=== PATIENT | female | born 1975 | race Caucasian/White ===

== ENCOUNTER 2025-08-08 19:15 | Emergency (ER) | payer MEDICAID, SELFPAY ==
[2025-08-08] VITALS (20 sets, daily range): BP systolic 99–135; BP diastolic 38–110; PULSE 56–69; RESP 8–25; TEMP 36.5; O2SAT 97–99
--- NOTE | 2025-08-08 19:15 | RT.EKG_ITS ---
APPROVED REPORT Exam: Resting ECG Reason for Exam: chest pain Patient Location: E HR:63 bpm ECG Measurements Heart Rate 63 AXIS MI 129 P 70 QRSd 99 QRS 83 QT 422 T 74 QTc 433 Conclusion Sinus rhythm, rate 63 No interval abnormalities No STEMI No priors available for comparison
--- NOTE | 2025-08-08 19:25 | DI.RAD_ITS ---
Exam(s) XR CHEST 2V PA LATERAL EXAM: XR CHEST 2V PA LATERAL CLINICAL HISTORY: Chest pain TECHNIQUE: 2D digital imaging was performed of the chest. Two images were obtained. PA and lateral views were obtained. COMPARISON: No exams were available for comparison FINDINGS: MEDIASTINUM: Normal. HEART: Normal. PULMONARY VASCULATURE: Normal. LUNGS: Clear. PLEURAL SPACE: No pleural effusion or pneumothorax. BONE:Within normal limits for the patient's age. OTHER FINDINGS:Normal. IMPRESSION: 1. No acute pulmonary findings. 2. The preliminary [facility] report was reviewed. DATA REPOSITORY: RADIATION DOSE DELIVERED:
--- NOTE | 2025-08-08 19:27 | ED.GENADUL_ITS ---
Discharge Plan Disposition Patient Disposition: Home Condition: Stable Discharge Details Clinical Impression: Chest pain Primary Care Provider: None,None ED Provider: Kanika Pedersen Home Meds and New Rx's Prescriptions: No Action albuterol 90 mcg/actuation aerosol inhalation fluticasone propionate [Aller-Rehan] 50 mcg/actuation spray,suspension 1 spray intranasal ONCE Rx Instructions: administer into each nostril montelukast [Singulair] 10 mg tablet 10 mg PO DAILY omeprazole 20 mg capsule,delayed release(DR/EC) 20 mg PO DAILY ipratropium-albuterol 0.5 mg-3 mg(2.5 mg base)/3 mL solution for nebulization 3 ml inhalation Q4H PRN levalbuterol HCl 1.25 mg/3 mL solution for nebulization 1.25 mg inhalation Q6H Discharge Instructions Instructions: Chest Pain, Adult ED Additional Instructions: You were seen in the emergency department today for evaluation of chest pain. In our department had a full physical examination performed, had an EKG that did not show sign of heart attack, and had laboratory studies that were reassuring, including 2 negative cardiac enzymes. Your chest x-ray does not show any sign of pneumonia or other abnormality to explain your symptoms. Given your very strenuous day, I am suspicious for a musculoskeletal cause of your chest pain, which could be the muscles, cartilage, or other structures of the chest wall. Please use therapeutic dosing of Tylenol (acetaminophen) & Advil (ibuprofen) in an alternating fashion as follows: Take 1000mg of Tylenol every 6 hours without missing doses- that is 4 times per day. Longterm in between the Tylenol doses, take 600mg of Advil also on a 6 hour schedule, that is also 4 times per day. With this strategy, you will be taking something for fever/pain as often as every 3 hours. The daily maximum dosing of Tylenol is 4000mg, and the daily maximum dosing of Advil is 2400mg. Please note that some common cold medications & prescription pain medications may contain acetaminophen and you need to read OTC drug labels and factor that in to maximum daily doses. I recommend that you obtain lidocaine patches [id number] and place them over the area of maximal pain. Please follow-up with your primary care provider in the next few days to discuss this visit and any symptoms that change, worsen, or persist. Thank you for allowing us to be part of your care. HPI General Mode of arrival: wheelchair . Date/Time Provider Initiated Documentation: 08/08/25 19:17 . Limitations to Documentation: no limitations . Information obtained by: patient and old records reviewed . HPI Narrative: This is a 50-year-old female patient with a past medical history significant for pulmonary nodules following at [facility] for cancer workup, history of pulmonary emphysema, presenting for evaluation of chest pain. She reports that this started about 30 minutes ago, she was moving and lifting stuff all day, had just finished eating and was resting when her pain started. It feels heavy and is radiating down her left arm to the level of her hand. She had nausea with an episode of vomiting in the waiting room. She did take some ibuprofen this afternoon. She reports that she has plaque buildup in her heart but has never experienced a heart attack. Reports that her chest pain is worse with movement, deep breath, and palpation. Related Data Home Medications ?Medication ?Instructions ?Recorded ?Confirmed albuterol 90 mcg/actuation aerosol mcg inhalation 07/15 04/07 inhaler fluticasone propionate 50 1 spray intranasal ONCE 07/1508/08/25 mcg/actuation nasal spray,suspension (Aller-Rehan) ipratropium 0.5 mg-albuterol 3 mg 3 ml inhalation Q4H PRN 08/08/25 08/08/25 (2.5 mg base)/3 mL nebulization soln levalbuterol HCl 1.25 mg/3 mL 1.25 mg inhalation Q6H 1 08/08/25 solution for nebulization montelukast 10 mg tablet 10 mg PO DAILY 08/08/2507/15 (Singulair) omeprazole 20 mg capsule,delayed 20 mg PO DAILY 08/08/25 release Allergies Allergy/AdvReac Type Severity Reaction Status Date / Time ciprofloxacin Allergy Other (See Verified 08/08/25 19:39 Comment) codeine Allergy Other (See Verified 08/08/25 19:39 Comment) Penicillins Allergy Other (See Verified 08/08/25 19:39 Comment) Sulfa (Sulfonamide Allergy Other (See Verified 08/08/25 19:39 Antibiotics) Comment) sulfamethoxazole (From Allergy Other (See Verified 08/08/25 19:39 Bactrim) Comment) trimethoprim (From Bactrim) Allergy Other (See Verified 08/08/25 19:39 Comment) General Stated Complaint: Chest Pain PAOLO: 3 Exam Narrative Exam Narrative: Gen: awake and alert, in no apparent distress. Appears well nourished. HEENT: Conjunctiva noninjected, external ears and nose normal, mucous membranes moist. Neck: Supple, full range of motion, no observable masses Lungs: No increased work of breathing, lung sounds clear and equal bilaterally without wheezes, rhonchi, or rales. CV: Heart with regular rate and rhythm, no murmurs auscultated. Strong and sym metrical radial pulses. Abdomen: Soft, nondistended, non-tender to palpation. No rigidity, rebound tenderness, or guarding. MSK: No joint swelling, no redness. Full ROM without limitation, no external traumatic findings. Skin: No rashes or lesions to visualized skin. Normal color, warm, and dry. Neuro: Symmetrical face, 5/5 strength in all muscle groups x4 extremities. No sensory deficits. Stands and pivots without difficulty. Psych: Appropriate for situation. Course Vital Signs Vital signs: Vital Signs Temperature 36.5 C 08/08/25 19:19 Pulse 68 08/08/25 19:19 Respiratory Rate 14 08/08/25 19:19 Blood Pressure 135/65 08/08/25 19:19 Pulse Oximetry 99 08/08/25 19:19 Temperature 36.5 C 08/08/25 19:19 Temperature Source Oral 08/08/25 19:19 Pulse 68 08/08/25 19:19 Respiratory Rate 14 08/08/25 19:19 Blood Pressure 135/65 08/08/25 19:19 Blood Pressure Position Supine 08/08/25 19:19 Pulse Oximetry 99 08/08/25 19:19 Oxygen Delivery Method Room Air 08/08/25 19:19 Oxygen Flow Rate 0 08/08/25 19:19 Pain Level 8 08/08/25 19:19 Medical Decision Making This is a 50-year-old female patient presenting for evaluation of chest pain radiating to the arm, with nausea and vomiting. My differential includes but is not limited to ACS including STEMI, NSTEMI, unstable angina, certainly considered arrhythmia, pericarditis/myocarditis, aortic pathology. Considered pulmonary abnormalities including pneumonia, bronchitis, pleural effusion, pulmonary edema, reactive airway disease, pneumothorax. The patient is without tachycardia or hypoxia, but with her history of potential cancer and her pleuritic reproduction of the pain I am considering pulmonary embolism. Considered Boerhaave's, esophagitis, peptic ulcer disease, pancreatitis. Considered musculoskeletal pathologies including costochondritis, chest wall pain. EKG obtained and reviewed by myself, showing a normal sinus rhythm without evidence of ischemia, interval abnormality, or ectopy. We will obtain labs to include CBC, CMP, magnesium, troponin, BNP, and D-dimer. We will obtain a chest x-ray, and provide the patient with aspirin, nitro, and ondansetron. - The patient endorses resolution of her chest pain prior to administration of nitro, so this was held. I independently interpreted the laboratory studies, which show no significant leukocytosis, anemia, or thrombocytopenia. The chemistry panel is without evidence of electrolyte abnormality, kidney dysfunction, or liver injury. Initial troponin is 4, 1 hour delta troponin is 4, and the patient has not had recurrence of her chest pain. She does endorse a mild headache, for which Tylenol was provided. I also provided her with a Lidoderm patch given her recent physical exertion. BNP is low as is the lipase. Chest x-ray shows no abnormalities which might account for the patient's symptoms. I had a shared decision-making conversation with the patient as I am most suspicious for a musculoskeletal etiology of her chest pain given the onset after exertion, the reproducibility with palpation, movement, and deep breath, and are otherwise reassuring workup. I counseled her on conservative pain management with Tylenol, ibuprofen, and Lidoderm. At this time, the patient has had a full medical evaluation and is safe for discharge to home. They are hemodynamically stable, ambulatory, and tolerating PO. They are understanding of the follow-up plan and return precautions. They left our facility without incident. Kanika Pedersen MD [facility] All Active Problems (Updated 08/08/25 @ 22:00 by Kanika Pedersen MD) Chest pain (Acute) Social History Smoking/Tobacco Use Status: Current every day Tobacco Type: cigarettes Smoking risk assessment performed?: Yes Alcohol Intake: former Drug use: Current Sobriety Substance use type: does not use and crack/cocaine Do you feel safe at home: Yes Do you feel safe in your relationship?: Yes
[2025-08-08 19:37] LABS: Abs Immature Grans 0.03 10^3/uL (0.0-0.06); HCT 37.1 % (36.0-46.0); HGB 12.6 g/dL (11.2-15.7); Immature Grans % 0.3 %; MCH 30.5 pg (27.0-33.0); MCHC 34.0 % (32.0-36.0); MCV 90 fL (80-95); MPV 9.2 fL (8.0-11.0); Platelet Count 340 10^3/uL (130-400); RBC 4.13 10^6/uL (3.93-5.22); RDW 12.8 % (11.7-14.6); RDW-SD 42.2 fL; WBC 9.37 10^3/uL (4.4-10.8)
[2025-08-08] MEDS: Aspirin 81 MG CHEW 324 MG CH (19:38)
[2025-08-08] MEDS: Ondansetron 4 MG/2 ML VIAL IVP (19:38)
[2025-08-08 20:02] LABS: ALT 22 U/L (14-59); AST 15 U/L (15-37); Albumin 3.5 g/dL (3.4-5.0); Alkaline Phosphatase 87 U/L (46-116); Anion Gap 7.1 mmol/L (3-11); BUN 18 mg/dL (7-18); Bilirubin, Total 0.2 mg/dL (0.2-1.0); CO2 31.9 mmol/L (21.0-32.0); Calcium 9.0 mg/dL (8.5-10.1); Chloride 102 mmol/L (98-107); Estimated GFR 89.15 (mL/min/1.73m2); Glucose 89 mg/dL (74-106); Lipase 72 U/L (<78); Magnesium 2.1 mg/dL (1.8-2.4); NT-proBNP 63 pg/mL (<300); Potassium 4.1 mmol/L (3.5-5.1); Sodium 141 mmol/L (136-145); Total Protein 7.0 g/dL (6.4-8.2); Troponin I 4 ng/L (<or=51)
[2025-08-08 20:03] LABS: D-Dimer 386 ng/mlFEU (<500)
[2025-08-08 20:51] LABS: Troponin I 4 ng/L (<or=51)
--- NOTE | 2025-08-08 21:19 | DI.[facility]_ITS ---
PROCEDURE INFORMATION: Exam: XR Chest Exam date and time: 08/08/2025 8:00 PM Age: 50 years old Clinical indication: Left-sided; L sided chest pain TECHNIQUE: Imaging protocol: Radiologic exam of the chest. Views: 2 views. COMPARISON: No relevant prior studies available. FINDINGS: Lungs: Unremarkable. No consolidation. Pleural spaces: Unremarkable. No pleural effusion. No pneumothorax. Heart/Mediastinum: Unremarkable. No cardiomegaly. Bones/joints: Unremarkable. IMPRESSION: No acute findings. Dictated and Authenticated by: Chrystal Chacko MD. Orderin [facility]. Bipin Boudreaux MD
[2025-08-08] MEDS: Lidocaine 5% Patch 1 PATCH TP (21:56)
[2025-08-08] MEDS: Acetaminophen 500 MG TAB 1000 MG PO (21:56)
== END 2025-08-08 22:04 | disposition home or self-care (01) ==
PROVIDERS: Emergency Provider Emergency Medicine
DX: R07.9 Chest pain, unspecified (principal)
CPT/HCPCS: 99284; 99285; 36415; 96374; 80053; 83690; 93005; 71046; 83735; 83880; 84484; 85025; 85379; 93010; J2405